=== PATIENT | female | born 1970 | race Hispanic/Latino ===

== ENCOUNTER → 2018-07-27 | Outpatient (CLI) | payer BC | END | disposition home or self-care (01) | LOC: RAH 09:52 | PROVIDERS: ATTEND Obstetrics & Gynecology | DX: Z12.31 Encounter for screening mammogram for malignant neoplasm of breast (principal) | CPT/HCPCS: 77067 ==

== ENCOUNTER → 2019-10-13 | Outpatient (CLI) | payer BC | END | disposition home or self-care (01) | LOC: RAH 13:34 | PROVIDERS: ATTEND Obstetrics & Gynecology | DX: Z12.31 Encounter for screening mammogram for malignant neoplasm of breast (principal) | CPT/HCPCS: 77067 ==

== ENCOUNTER → 2020-11-08 | Outpatient (CLI) | payer BC | END | disposition home or self-care (01) | LOC: RAH 13:35 | PROVIDERS: ATTEND Family Medicine | DX: Z12.31 Encounter for screening mammogram for malignant neoplasm of breast (principal) | CPT/HCPCS: 77067 ==

== ENCOUNTER 2020-12-14 06:50 | Day surgery (SDC) | payer BC ==
[2020-12-07 15:50] LABS: BASOPHILS % (AUTO) 0.9 % (0.0-5.0); EOSINOPHILS % (AUTO) 1.1 % (0.0-8.0); HEMATOCRIT 44.1 % (36-48); LYMPHOCYTES % (AUTO) 23.5 % (21.0-51.0); MEAN CORPUSCULAR HEMOGLOBIN 28.5 pg (27.0-33.0); MEAN CORPUSCULAR HGB CONC 33.6 g/dL (32.0-36.0); MEAN CORPUSCULAR VOLUME 84.8 fL (79-99); MONOCYTES % (AUTO) 6.2 % (3.0-13.0); NEUTROPHILS % (AUTO) 68.1 % (40.0-77.0); PLATELET COUNT (AUTO) 279 K/uL (130-400); WHITE BLOOD COUNT (AUTO) 9.3 K/uL (4.8-10.8)
[2020-12-13 11:16] VITALS: BP 180/86
[2020-12-14] VITALS (16 sets, daily range): BP systolic 134–157; BP diastolic 77–101
[~2020-12-14] VITALS: Ht 162.6 cm; Wt 81.6 kg
[2020-12-14] MEDS: CALDOLOR 800MG+NS 250ML 250 ML IV SCH ×2 (06:00→09:30)
[2020-12-14] MEDS: CEFAZOLIN SODIUM 1 GM VIAL IVP SCH ×2 (06:00→09:20)
[~2020-12-14 06:50] MED LIST: LEVO100C4 PO; VITAMIN D3 PO
[2020-12-14] MEDS ORDERED: SUCCINYLCHOLINE CHLORIDE 20 MG/ML 10 ML VIAL ONE (07:08)
[2020-12-14] MEDS ORDERED: LIDOCAINE PF 2% 5ML ABBOJECT ONE (07:08)
[2020-12-14] MEDS ORDERED: DEXAMETHASONE SOD PHOSPHATE 10MG/ML 1ML VIAL ONE (07:08)
[2020-12-14] MEDS ORDERED: MIDAZOLAM HCL 1 MG/ML 2ML VIAL ONE (07:09)
[2020-12-14] MEDS ORDERED: PROPOFOL 10 MG/ML 20ML VIAL IV ONE (07:09)
[2020-12-14] MEDS ORDERED: GLYCOPYRROLATE 1 MG/5 ML SYRINGE ONE (07:09)
[2020-12-14] MEDS ORDERED: ONDANSETRON HCL 4 MG/2 ML VIAL ONE (07:09)
[2020-12-14] MEDS ORDERED: NEOSTIGMINE 5MG/5ML SYR IV ONE (07:10)
[2020-12-14] MEDS ORDERED: FENTANYL CITRATE PF 50 MCG/1 ML 2ML VIAL ONE (07:10)
[2020-12-14] MEDS ORDERED: ROCURONIUM 10MG/1ML SYR 10 MG/ML ML ONE (07:10)
[2020-12-14] MEDS ORDERED: LACTATED RINGERS 1000ML 1,000 ML IV ONE (07:21)
== END 2020-12-14 11:45 | disposition home or self-care (01) ==
LOC: DAH 06:50
PROVIDERS: ATTEND Obstetrics & Gynecology
DX: N95.0 Postmenopausal bleeding (principal); Z20.822 Contact with and (suspected) exposure to COVID-19; N95.2 Postmenopausal atrophic vaginitis; N85.8 Other specified noninflammatory disorders of uterus; E66.9 Obesity, unspecified; E03.9 Hypothyroidism, unspecified; Z79.890 Hormone replacement therapy; Z98.891 History of uterine scar from previous surgery; Z68.30 Body mass index [BMI] 30.0-30.9, adult; Z98.890 Other specified postprocedural states; Z79.899 Other long term (current) drug therapy
CPT/HCPCS: 36415 ×2; 58558; 85025; 86850 ×2; 86900 ×2; 86901 ×2; A4215; A4221; A4222; A4223; A4351; A4663; C9803; J0330; J0690; J1100; J1741; J2001; J2250; J2405; J2704; J2710; J3010; J3490; J7030; J7120 ×2; U0003

== ENCOUNTER → 2021-11-12 | Outpatient (CLI) | payer BC | END | disposition home or self-care (01) | LOC: RAH 14:59 | PROVIDERS: ATTEND Family Medicine | DX: Z12.31 Encounter for screening mammogram for malignant neoplasm of breast (principal); D24.2 Benign neoplasm of left breast; R92.1 Mammographic calcification found on diagnostic imaging of breast | CPT/HCPCS: 77067 ==

== ENCOUNTER → 2022-11-19 | Outpatient (CLI) | payer BC | END | disposition home or self-care (01) | LOC: RAH 15:47 | PROVIDERS: ATTEND Obstetrics & Gynecology | DX: Z12.31 Encounter for screening mammogram for malignant neoplasm of breast (principal) | CPT/HCPCS: 77067 ==

== ENCOUNTER → 2023-12-03 | Outpatient (CLI) | payer BC | END | disposition home or self-care (01) | LOC: RAH 09:57 | PROVIDERS: ATTEND Family Medicine | DX: Z12.31 Encounter for screening mammogram for malignant neoplasm of breast (principal) | CPT/HCPCS: 77067 ==